=== PATIENT | male | born 1980 | race Caucasian/White ===

== ENCOUNTER 2017-06-11 13:24 | Day surgery (SDC) | payer BC ==
[~2017-06-11] VITALS: Ht 182.9 cm; Wt 84.1 kg
[2017-06-11 16:16] VITALS: BP 136/88; PULSE 75; TEMP 97.6
[2017-06-11 16:31] VITALS: BP 140/100; PULSE 65
[2017-06-11 16:46] VITALS: BP 147/106; PULSE 49
[2017-06-11 17:01] VITALS: BP 152/109; PULSE 59
[2017-06-11 17:31] VITALS: BP 147/89; PULSE 55
[2017-06-11] MEDS ORDERED: CEPHALEXIN500 M1 PO (17:44)
[2017-06-11] MEDS ORDERED: NORCO 325 MG-51 TAB PO (17:45)
== END 2017-06-11 17:49 | disposition home or self-care (01) ==
LOC: COL.ER 13:24 → SDCO 14:45
DX: S62.634B Displaced fracture of distal phalanx of right ring finger, initial encounter for open fracture (principal); S61.217A Laceration without foreign body of left little finger without damage to nail, initial encounter; S61.315A Laceration without foreign body of left ring finger with damage to nail, initial encounter; W31.2XXA Contact with powered woodworking and forming machines, initial encounter; W00.0XXA Fall on same level due to ice and snow, initial encounter; F17.210 Nicotine dependence, cigarettes, uncomplicated; Z80.8 Family history of malignant neoplasm of other organs or systems
CPT/HCPCS: J1885; J2250; J2405; J2704; J3010